=== PATIENT | male | born 1975 | race Caucasian/White ===

== ENCOUNTER 2017-02-18 23:31 | Emergency (ER) | payer SELFPAY ==
[~2017-02-18] VITALS: Ht 188 cm; Wt 104.7 kg
[2017-02-18 23:33] VITALS: BP 147/97; PULSE 96; RESP 18; TEMP 97.3; O2SAT 96
[2017-02-18 23:50] VITALS: BP 147/97; PULSE 98; RESP 18; TEMP 97.3; O2SAT 96
[2017-02-19] MEDS ORDERED: SODIUM CHLORIDE 0.9% FLUSH 10 ML FLUSH IVF PRN (00:15)
[2017-02-19 00:31] VITALS: BP 136/97; PULSE 72; RESP 16; O2SAT 95
[2017-02-19] MEDS ORDERED: KETOROLAC TROMETHAMINE 30 MG/ML (IVP) VIAL IV PUSH ONE (00:45)
[2017-02-19 00:58] LABS: BLOOD, URINE TRACE (NEG); GLUCOSE,URINE NEG (NEG); KETONE, URINE TRACE mg/dL (NEG); NITRITE,URINE NEG (NEG); PH, URINE 5.5 (5.0-8.5)
[2017-02-19 01:00] LABS: BASOPHIL % 0.2 % (0.0-2.0); EOSINOPHIL # 0.7 TH/MM3 (0-0.4); EOSINOPHIL % 6.8 % (0.0-4.0); HEMATOCRIT 44.8 % (39.0-51.0); HEMO FLAGS DIFF FINAL; LYMPHOCYTE # 2.5 TH/MM3 (1.0-4.8); MEAN CELL VOLUME 88.5 FL (80.0-100.0); MEAN CORPUSCULAR HGB CONC 32.7 % (32.0-36.0); MONO % 8.5 % (0.0-8.0); NEUT % 59.5 % (16.0-70.0); PLATELET COUNT 272 TH/MM3 (150-450); RED BLOOD COUNT 5.06 MIL/MM3 (4.50-5.90); RED CELL DISTRIBUTION WIDTH 14.4 % (11.6-17.2); WHITE BLOOD COUNT 10.1 TH/MM3 (4.0-11.0)
[2017-02-19 01:04] LABS: MUCUS URINE MANY /lpf (OCC); SQUAMOUS EPITHELIAL CELL URINE 0-5 /hpf (0-5); URINE COLOR YELLOW (YELLW/STRAW)
[2017-02-19 01:05] LABS: COMMENT (UR) CULT NOT INDICATED; CULTURE IF INDICATED CULT NOT INDICATED
[2017-02-19 01:07] LABS: POTASSIUM 3.5 MEQ/L (3.5-5.1)
[2017-02-19 01:10] LABS: BICARBONATE 27.5 MEQ/L (21.0-32.0)
--- NOTE | 2017-02-19 01:21 | PD ---
HPI Chief Complaint: Abdominal Pain Time Seen by Provider: 00:11 Travel History International Travel<30 days: No Contact w/Intl Traveler<30days: No Traveled to known affect area: No History of Present Illness HPI The patient is a 41-year-old male that woke up around 9 PM this evening with a sharp, throbbing pain of 10 over 10 to his left lower flank and abdomen. The pain remains only on the left side. He denies any history of kidney stones. He has had vomiting several times. He denies any dysuria, frequency or urgency. The pain decreased dramatically just as he got inside the emergency department and is now a 10. PFSH Past Medical History Medical History: Denies Significant Hx Tetanus Vaccination: > 5 Years Influenza Vaccination: No Past Surgical History Other Surgery: Yes (R HAND REPAIR, URETHRAL SX A CHILD) Social History Alcohol Use: Yes (OCCASIONAL) Tobacco Use: Yes (1 PPD) Substance Use: Yes (MARIJUANA) Allergies-Medications (Allergen,Severity, Reaction): Coded Allergies: No Known Allergies (Unverified , 02/18/17) Reported Meds & Prescriptions Reported Meds & Active Scripts Active No Active Prescriptions or Reported Medications Review of Systems Except as stated in HPI: all other systems reviewed are Neg Physical Exam Narrative GENERAL: The patient is alert, oriented 3 in slight apparent distress with his left flank pain. His vital signs show blood pressure 147/97 with heart rate of 96 but are otherwise normal. SKIN: Focused skin assessment warm/dry. HEAD: Atraumatic. Normocephalic. EYES: Pupils equal and round. No scleral icterus. No injection or drainage. ENT: No nasal bleeding or discharge. Mucous membranes pink and moist. NECK: Trachea midline. No JVD. CARDIOVASCULAR: Regular rate and rhythm. No murmur appreciated. RESPIRATORY: No accessory muscle use. Clear to auscultation. Breath sounds equal bilaterally. GASTROINTESTINAL: Abdomen soft, with minimal tenderness to deep direct palpation around the left flank. The abdomen is nondistended. Hepatic and splenic margins not palpable. MUSCULOSKELETAL: No obvious deformities. No clubbing. No cyanosis. No edema. NEUROLOGICAL: Awake and alert. No obvious cranial nerve deficits. Motor grossly within normal limits. Normal speech. PSYCHIATRIC: Appropriate mood and affect; insight and judgment normal. Data Data Last Documented VS Vital Signs Date Time Temp Pulse Resp B/P (MAP) Pulse Ox O2 Delivery O2 Flow Rate FiO2 02/19/17 00:31 72 16 136/97 (110) 95 Room Air 02/18/17 23:50 97.3 Orders Orders Complete Blood Count With Diff (02/19/17 00:15) Basic Metabolic Panel (Bmp) (02/19/17 00:15) Urinalysis - C+S If Indicated (02/19/17 00:15) Ct Abd/Pel W/O Iv Contrast (02/19/17 00:15) Ecg Monitoring (02/19/17 00:15) Iv Access Insert/Monitor (02/19/17:15) Sodium Chloride 0.9% Flush (Ns Flush) (02/19/17 00:15) Ketorolac Inj (Toradol Inj) (02/19/17 00:45) Labs Laboratory Tests Test 02/19/17 00:42 White Blood Count 10.1 TH/MM3 Red Blood Count 5.06 MIL/MM3 Hemoglobin 14.6 GM/DL Hematocrit 44.8 % Mean Corpuscular Volume 88.5 FL Mean Corpuscular Hemoglobin 29.0 PG Mean Corpuscular Hemoglobin Concent 32.7 % Red Cell Distribution Width 14.4 % Platelet Count 272 TH/MM3 Mean Platelet Volume 9.0 FL Neutrophils (%) (Auto) 59.5 % Lymphocytes (%) (Auto) 25.0 % Monocytes (%) (Auto) 8.5 % Eosinophils (%) (Auto) 6.8 % Basophils (%) (Auto) 0.2 % Neutrophils # (Auto) 6.0 TH/MM3 Lymphocytes # (Auto) 2.5 TH/MM3 Monocytes # (Auto) 0.9 TH/MM3 Eosinophils # (Auto) 0.7 TH/MM3 Basophils # (Auto) 0.0 TH/MM3 CBC Comment DIFF FINAL Differential Comment Urine Color YELLOW Urine Turbidity CLEAR Urine pH 5.5 Urine Specific [place] 1.029 Urine Protein NEG mg/dL Urine Glucose (UA) NEG mg/dL Urine Ketones TRACE mg/dL Urine Occult Blood TRACE Urine Nitrite NEG Urine Bilirubin NEG Urine Leukocyte Esterase NEG Urine RBC 4-9 /hpf Urine Squamous Epithelial Cells 0-5 /hpf Urine Mucus MANY /lpf Microscopic Urinalysis Comment CULT NOT INDICATED Blood Urea Nitrogen 18 MG/DL Creatinine 1.10 MG/DL Random Glucose 125 MG/DL Calcium Level 8.9 MG/DL Sodium Level 139 MEQ/L Potassium Level 3.5 MEQ/L Chloride Level 104 MEQ/L Carbon Dioxide Level 27.5 MEQ/L Anion Gap 8 MEQ/L Estimat Glomerular Filtration Rate 75 ML/MIN MDM Medical Decision Making Medical Screen Exam Complete: Yes Emergency Medical Condition: Yes Medical Record Reviewed: Yes Interpretation(s) The CBC is normal. The urine shows trace ketones, trace blood, 4-9 red cells but is otherwise normal. The basic metabolic profile shows a GFR of 75 but is otherwise normal. The CT abdomen/pelvis without IV contrast shows a recent passage of a calculus in the left collecting system measuring 4 mm. The stone is within the posterior left urinary bladder. Incidentally noted is a right renal low density likely cyst. Differential Diagnosis Left ureteral stone, abdominal aortic aneurysm-unlikely, urinary tract infection , anemia, electrolyte disorder, renal insufficiency, hyper/hypoglycemia Narrative Course It is now 0150 and the patient's pain is a 1/10. The CT abdomen/pelvis demonstrates a recent passage of a 4 mm stone. Impression: Left ureteral stone Plan: The patient will take [id number] Motrin for pain and follow-up with a urologist if he has any problems. Diagnosis Primary Impression: Left ureteral calculus Additional Instructions: Drink plenty of liquids and take [id number] Motrin for discomfort. You should not have any problems, but if you do, follow-up with urologist. Med/Other Pt SpecificInfo: No Change to Meds Scripts No Active Prescriptions or Reported Meds Disposition: 01 DISCHARGE HOME Condition: Stable Rohit Berumen MD Feb 19, 2017 01:21
--- NOTE | 2017-02-19 02:04 | RADRPT ---
EXAM DATE/TIME: 02/19/2017 00:56 [facility] COMPARISON: No previous studies available for comparison. INDICATIONS : Left flank and back pain. ORAL CONTRAST: No oral contrast ingested. RADIATION DOSE: 22.83 CTDIvol (mGy) MEDICAL HISTORY : None SURGICAL HISTORY : None. ENCOUNTER: Initial ACUITY: 1 day PAIN SCALE: 2/10 LOCATION: Left flank TECHNIQUE: Volumetric scanning of the abdomen and pelvis was performed. Using automated exposure control and ad justment of the mA and/or kV according to patient size, radiation dose was kept as low as reasonably achievable to obtain optimal diagnostic quality images. DICOM format image data is available electro nically for review and comparison. FINDINGS: LOWER LUNGS: The visualized lower lungs are clear. LIVER: Homogeneous density without lesion. There is no dilation of the biliary tree. No calcified gallston es. SPLEEN: Normal size without lesion. PANCREAS: Within normal limits. KIDNEYS: Normal in size and shape. There is no mass, stone, or hydronephrosis. Slight prominence left ureter. 1.4 cm low-density right kidney lower pole. ADRENAL GLANDS: Within normal limits. VASCULAR: There is no aortic aneurysm. BOWEL/MESENTERY: The stomach, small bowel, and colon demonstrate no acute abnormality. There is no free intraperitone al air or fluid. ABDOMINAL WALL: Within normal limits. RETROPERITONEUM: There is no lymphadenopathy. BLADDER: No wall thickening or mass. 4 mm calculus posterior left urinary bladder. REPRODUCTIVE: Within normal limits. INGUINAL: There is no lymphadenopathy or hernia. MUSCULOSKELETAL: Within normal limits for patient age. CONCLUSION: 1. Recent passage of a calculus in the left collecting system measuring 4 mm seen within the posterio r left urinary bladder. 2. Right renal low-density likely cyst. Bassam Steele MD on February 19, 2017 at 2:01 Board Certified Radiologist. This report was verified electronically.
[2017-02-19 02:11] VITALS: RESP 16
[2017-02-19 02:16] VITALS: BP 134/76
== END 2017-02-19 02:19 | disposition home or self-care (01) ==
LOC: PHED 23:31
DX: N20.1 Calculus of ureter (principal); F17.200 Nicotine dependence, unspecified, uncomplicated
CPT/HCPCS: 74176; 80048; 81001; 85025; 96374; 99285; J1885